=== PATIENT | male | born 1945 | race Caucasian/White ===

== ENCOUNTER 2016-09-12 06:08 | Day surgery (SDC) | payer BC ==
[2016-09-08 11:20] LABS: HEMATOCRIT 45.4 % (40.0-51.0); HEMOGLOBIN 15.3 g/dL (13.6-17.8)
--- NOTE | ~2016-09-12 | OP ---
Record Of Operation [facility] [address] [place]. [address] NAME: GITA CUNNINGHAM : 49 STATUS : [place] [facility] [place] PAT#: [id number] AGE: 71 ADM/REG DATE : 09/12/16 MR#: [id number] REPORT SERV DATE: 09/12/16 DICTATED BY: FELICITAS BONILLA DATE: 09/12/16 REPORT STATUS : Draft TRANSCRIBED BY: MODMian DATE: 09/12/16 DATE OF PROCEDURE: 09/12/2016 PREOPERATIVE DIAGNOSES: 1. Bilateral chronic otitis media. 2. Left tympanic membrane perforation. POSTOPERATIVE DIAGNOSES: 1. Bilateral chronic otitis media. 2. Left tympanic membrane perforation. PROCEDURES: 1. Right myringotomy with insertion of T-tube. 2. Left type 1 tympanoplasty. 3. Left tragal perichondrial graft harvest. ANESTHESIA: General. COMPLICATIONS: None. COUNTS: All counts correct following the procedure. ESTIMATED BLOOD LOSS: 1 mL. PREOPERATIVE INFORMED CONSENT: We discussed the risk and benefits of surgery including, but not limited to bleeding, infection, possible hearing loss, possible postoperative taste distortion, possible failure of the graft requiring revision surgery, and consent is on the chart. PROCEDURE IN DETAIL: The patient was brought to the operating suite and placed on the operating table in supine position. General endotracheal anesthesia was initiated without incident. The right ear was addressed first. A myringotomy knife was used to make an incision in the anterior aspect of the pars tensa. There was noted to be severe atelectasis of the mid and inferior portion of the pars tensa. Upon entering middle ear space, a copious amount of serous fluid and suctioned middle ear space till clear. Following this, a Ada type T-tube was placed through the myringotomy site using alligator forceps and manipulated into position using a Dupont needle. Placement was confirmed. Attention was taken to the left ear. The left ear was cleaned and prepped using sterile fashion. The tragus and ear canal were injected with approximately 3 mL of 1% lidocaine and 1:100,000 epinephrine for hemostasis. Following this, the edges of the central and anterior marginal perforation were carefully freshened using straight house pick and cup forceps and a standard tympanomeatal flap was raised from the 6 o'clock to 12 o'clock position using a [place] knife and a lancet knife and a Dupont needle. Upon completion of the muscle flap, then the long and short process of the malleus were skeletonized using a 45-degree sharp pick. The middle ear space was then Record Of Operation [address] [place]. [address] NAME: GITA CUNNINGHAM : 49 STATUS : [place] [facility] [place] PAT#: [id number] AGE: 71 ADM/REG DATE : 09/12/16 MR#: [id number] REPORT SERV DATE: 09/12/16 DICTATED BY: FELICITAS BONILLA DATE: 09/12/16 REPORT STATUS : Draft TRANSCRIBED BY: GIGI DATE: 09/12/16 filled with Adrenalin-soaked pledgets and attention was taken to the tragus. A 15 blade scalpel was used to make an incision on the lateral aspect of the tragus down to the underlying tragal cartilage, then the posterior aspect of the tragus was exposed using curved iris scissors and a 15 blade scalpel was used to make an incision on the lateral aspect of the tragus and tragal perichondrium was lifted up using a [place]bill elevator. Then, the graft was harvested using curved iris scissors and placed in a vein press and placed on the back table for later use. The incision was closed using a running 5-0 plain gut suture. Attention was then taken back to the middle ear space. The middle ear space was then filled with small pieces of Gelfoam up to the level of the pars tensa. Then, the graft was obtained and placed using alligator forceps to beneath the tympanic membrane and all edges were tucked beneath all edges of the perforation using a Dupont needle and a forward searcher. The tympanomeatal flap was laid back down in its anatomic position. Again all edges of the graft were again inspected and made sure they were all tucked beneath all edges of the perforation. The lateral aspect of the graft and the tympanic membrane were covered with more Gelfoam, moistened with saline out to the level of the lateral aspect of the external auditory canal followed by bacitracin ointment and a standard mastoid dressing. The patient was then awakened from anesthesia and taken to the recovery room in stable condition. JAY/GIGI Felicitas Bonilla M.D. / [id number] CC: Marcello De La Rosa M.D.
[~2016-09-12 06:08] MED LIST: ASAB PO; CALTRA600D PO; CLARINEX5 MG PO; DOAN'S RS325 MG PO; FLOMAX4 PO; FOLBEE PLU1 PO; FOLBEE PO; FOSAMAX70 MG; GLUCCHONDR PO; MAGNESIUM PO; NASONEX NAS; PROSCAR5 PO; ZOCOR20 PO
== END 2016-09-12 23:59 | disposition home or self-care (01) ==
LOC: MSC 06:08
PROVIDERS: Otolaryngology
PROC: 09B1XZZ Excision of Left External Ear, External Approach (ICD-10-PCS; 2016-09-12)
PROC: 099500Z Drainage of Right Middle Ear with Drainage Device, Open Approach (ICD-10-PCS; principal; 2016-09-12 07:15)
PROC: 09U607Z Supplement Left Middle Ear with Autologous Tissue Substitute, Open Approach (ICD-10-PCS; 2016-09-12 07:15)
DX: H65.21 Chronic serous otitis media, right ear (principal); H66.92 Otitis media, unspecified, left ear; H72.02 Central perforation of tympanic membrane, left ear; H72.2X2 Other marginal perforations of tympanic membrane, left ear; E78.5 Hyperlipidemia, unspecified; E78.00 Pure hypercholesterolemia, unspecified; N40.0 Benign prostatic hyperplasia without lower urinary tract symptoms; M19.90 Unspecified osteoarthritis, unspecified site; M85.80 Other specified disorders of bone density and structure, unspecified site; Z83.3 Family history of diabetes mellitus; Z82.2 Family history of deafness and hearing loss; Z79.83 Long term (current) use of bisphosphonates; Z79.82 Long term (current) use of aspirin; Z79.899 Other long term (current) drug therapy; Z87.891 Personal history of nicotine dependence; Z97.4 Presence of external hearing-aid; Z98.890 Other specified postprocedural states; Z87.442 Personal history of urinary calculi; Z96.621 Presence of right artificial elbow joint; Z90.89 Acquired absence of other organs
CPT/HCPCS: 85014; 85018; 93005; A9270-GY; J0690; J2250; J2405; J3010